=== PATIENT | male | born 1995 | race Caucasian/White ===

== ENCOUNTER 2025-02-14 14:17 | Emergency (ER) | payer OTHER ==
[~2025-02-14] VITALS: Ht 188 cm; Wt 128.0 kg
[2025-02-14] MEDS: ONDANSETRON 4MG ORAL DISINTEGRATING TAB PO ONE (17:08)
[2025-02-14] MEDS ORDERED: KETOROLAC 60 MG/2 ML VIAL IM ONE (18:05)
[2025-02-14] MEDS ORDERED: ISOVUE-370 76% 100 ML VIAL As Ordered ONE (18:18)
[2025-02-14] MEDS: MORPHINE 4 MG/ML 1 ML VIAL IV ONE (19:10)
[2025-02-14] MEDS: KETOROLAC 30 MG/ML 1 ML VIAL IV ONE (19:19)
[2025-02-14] MEDS: ACETAMINOPHEN *IV* 1,000 MG in IV 1 EA IV ONE (19:48)
[2025-02-14 20:17] VITALS: BP 135/71; TEMP 98; O2SAT 100
== END 2025-02-14 20:39 | disposition home or self-care (01) ==
LOC: M ED 14:17
DX: S70.02XA Contusion of left hip, initial encounter (principal); M25.531 Pain in right wrist; M25.522 Pain in left elbow; W12.XXXA Fall on and from scaffolding, initial encounter; Y92.89 Other specified places as the place of occurrence of the external cause; Y93.9 Activity, unspecified; Y99.0 Civilian activity done for income or pay; F31.9 Bipolar disorder, unspecified; Z88.8 Allergy status to other drugs, medicaments and biological substances
CPT/HCPCS: 70450; 71111; 71260; 72125; 73080; 73110; 73521; 74177; 80047; 96365; 96375; 99284; J0134; J1885; Q9967